=== PATIENT | female | born 1980 | race Caucasian/White ===

== ENCOUNTER 2018-08-05 12:33 | Day surgery (SDC) | payer MEDICAID ==
[2018-08-05 13:45] LABS: ADD MAN DIFF? NO
[2018-08-05 13:46] LABS: WHITE BLOOD COUNT 9.9 10^3/ul (4.8-10.8)
[2018-08-05 13:46] LABS: BASOPHILS % 0.3 % (0.0-2.0); EOSINOPHILS # 0.2 10^3/ul (0.0-0.5); EOSINOPHILS % 1.8 % (0.0-7.0); HEMATOCRIT 35.2 % (37.0-47.0); HEMOGLOBIN 11.1 g/dl (12.0-16.0); LYMPHOCYTES # 2.5 10^3/ul (0.8-2.9); LYMPHOCYTES % 25.2 % (15.0-51.0); MEAN CORPUSCULAR HEMOGLOBIN 25.9 pg (29.0-33.0); MEAN CORPUSCULAR HGB CONC 31.5 g/dl (32.0-37.0); MEAN CORPUSCULAR VOLUME 82.1 fl (82.0-101.0); MONOCYTE # 0.7 10^3/ul (0.3-0.9); MONOCYTES % 6.8 % (0.0-11.0); NEUTROPHIL # 6.5 10^3/ul (1.6-7.5); NEUTROPHILS % 65.5 % (39.0-77.0); PLATELET COUNT 304 10^3/UL (140-415); RED BLOOD COUNT 4.29 10^6/ul (4.20-5.40); RED CELL DISTRIBUTION WIDTH 14.3 % (11.5-14.5)
[2018-08-05] MEDS ORDERED: PROPOFOL 20 ML (14:25)
[2018-08-05] MEDS ORDERED: LIDOCAINE 2% (SDV) 5 ML INJ (14:25)
[2018-08-05] MEDS ORDERED: ROCURONIUM 50 MG INJ (14:25)
[2018-08-05] MEDS ORDERED: FENTAnyl 50 MCG/ML VIAL (14:25)
[2018-08-05] MEDS ORDERED: ROPIVACAINE 0.5 % 30 ML VIAL (14:32)
[2018-08-05] MEDS ORDERED: CEFAZOLIN 1 GM INJ (14:39)
[2018-08-05] MEDS ORDERED: ONDANSETRON 4 MG INJ ×2 (14:41→15:24)
[2018-08-05] MEDS ORDERED: SUGAMMADEX SODIUM 200 MG/2 ML VIAL IV (15:08)
[2018-08-05] MEDS ORDERED: EPINEPHrine 100 MCG/10 ML SYG IV (15:16)
[2018-08-05] MEDS ORDERED: HYDROmorphONE 1 MG/5 ML IV SYRINGE IV ×2 (15:24→15:30)
[2018-08-05] MEDS: HYDROmorphONE 1 MG/5 ML IV SYRINGE IV (15:51)
[2018-08-05] MEDS: ONDANSETRON 4 MG INJ IV (15:55)
== END 2018-08-05 18:47 | disposition home or self-care (01) ==
LOC: SDS 12:33
DX: Z30.2 Encounter for sterilization (principal); E11.9 Type 2 diabetes mellitus without complications; I10 Essential (primary) hypertension
CPT/HCPCS: 58670; 82962; 84703; 85025; 86850; 86900; 86901